=== PATIENT | male | born 2000 | race Caucasian/White ===

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

== ENCOUNTER 2023-05-10 15:27 | Inpatient (IN) | payer MEDICAID, OTHER, SELFPAY ==
[~2023-05-10] VITALS: Ht 180.3 cm; Wt 68.6 kg
[~2023-05-10 15:27] MED LIST: ACET-683 PO; KETO10TAB PO; ONDA4TAB6 PO
[2023-05-10 16:19] LABS: HEMATOCRIT 34.7 % (42.0-52.0); HEMOGLOBIN 11.8 g/dl (13.5-17.5); MEAN CORPUSCULAR HEMOGLOBIN 30.8 pg (27.0-33.0); MEAN CORPUSCULAR VOLUME 90.6 fl (80.0-96.0); PLATELET COUNT, AUTOMATED 174 10^3/uL (150-450); RED BLOOD COUNT 3.83 10^6/uL (4.30-6.10); WHITE BLOOD COUNT 7.5 10^3/uL (4.0-10.0)
[2023-05-10 16:46] LABS: ETHYL ALCOHOL (ETHANOL) < 0.003 % (0.000-0.010)
[2023-05-10 16:47] LABS: SALICYLATE LEVEL < 3.0 MG/DL (<30)
[2023-05-10 16:48] LABS: ACETAMINOPHEN LEVEL < 2.0 UG/ML (10.0-20.0); ALBUMIN 3.3 G/DL (3.2-5.2); ALKALINE PHOSPHATASE 84 U/L (46-116); ALT/SGPT 27 U/L (7.0-40); AST/SGOT 16 U/L (<34); BILIRUBIN,DIRECT 0.2 MG/DL (<0.4); BILIRUBIN,TOTAL 0.4 MG/DL (0.3-1.2); BLOOD UREA NITROGEN 17 MG/DL (9-23); CALCIUM LEVEL 8.5 MG/DL (8.5-10.1); CARBON DIOXIDE LEVEL 29 MMOL/L (20-31); CHLORIDE LEVEL 103 MMOL/L (98-107); CREATININE FOR GFR 0.87 MG/DL (0.70-1.30); GLOMERULAR FILTRATION RATE > 60.0 (>60); GLUCOSE, FASTING 72 MG/DL (60-100); POTASSIUM SERUM 3.9 MMOL/L (3.5-5.1); SODIUM LEVEL 137 MMOL/L (136-145); TOTAL PROTEIN 6.5 G/DL (5.7-8.2)
[2023-05-10 16:50] LABS: THYROID STIMULATING HORMONE 1.111 uIU/ML (0.55-4.78)
[2023-05-10 18:41] LABS: BARBITURATES URINE NEGATIVE (NEGATIVE); BENZODIAZEPINES URINE NEGATIVE (NEGATIVE); COCAINE METABOLITE URINE NEGATIVE (NEGATIVE); METHADONE URINE NEGATIVE (NEGATIVE); OPIATES URINE NEGATIVE (NEGATIVE); PHENCYCLIDINE URINE NEGATIVE (NEGATIVE)
[2023-05-10 18:44] LABS: AMPHETAMINES LEVEL URINE POSITIVE (NEGATIVE); CANNABINOIDS URINE POSITIVE (NEGATIVE)
[2023-05-10] MEDS ORDERED: ACETAMINOPHEN TAB 650MG DOSE (2X325MG) PO PRN (19:00)
[2023-05-10] MEDS ORDERED: MOM 30ML SUSPENSION UDC PO PRN (19:00)
[2023-05-10] MEDS ORDERED: MAALOX 30 ML SUSP *UDC PO PRN (19:00)
[2023-05-10] MEDS ORDERED: diphenhydrAMINE 25MG CAP PO PRN (19:00)
[2023-05-10] MEDS ORDERED: HOME MED LIST COMPLETE! XX SCH (19:15)
[2023-05-10 22:12] VITALS: BP 136/64; TEMP 98.4; O2SAT 100
[2023-05-10] MEDS: traZODone 50 MG TAB PO PRN (23:05)
[2023-05-11] MEDS: IBUPROFEN 400MG TAB PO PRN (06:25)
[2023-05-11 06:29] VITALS: BP 131/70; TEMP 99.3; O2SAT 98
[2023-05-11] MEDS: NICOTINE 21MG/24HR 1 EA TRANSDERMAL TD SCH (08:21)
[2023-05-11] MEDS ORDERED: SERTRALINE HCL 25 MG TABLET PO ONE (13:30)
[2023-05-11 17:58] VITALS: BP 141/76; TEMP 98
[2023-05-11] MEDS: traZODone 50 MG TAB PO PRN (20:43)
[2023-05-12] MEDS: IBUPROFEN 400MG TAB PO PRN (06:19)
[2023-05-12 06:35] VITALS: BP 137/84; TEMP 98.4; O2SAT 100
[2023-05-12] MEDS: NICOTINE 21MG/24HR 1 EA TRANSDERMAL TD SCH (08:14)
[2023-05-12] MEDS: SERTRALINE HCL 50 MG TAB PO SCH (08:14)
[2023-05-12 18:25] VITALS: BP 138/74; TEMP 98.2
[2023-05-12] MEDS: traZODone 50 MG TAB PO PRN (20:14)
[2023-05-13 06:34] VITALS: BP 139/85; TEMP 97.9; O2SAT 96
[2023-05-13] MEDS: SERTRALINE HCL 50 MG TAB PO SCH (08:32)
[2023-05-13] MEDS: NICOTINE 21MG/24HR 1 EA TRANSDERMAL TD SCH (08:33)
[2023-05-13] MEDS ORDERED: SERT50TA29 PO (09:12)
[2023-05-13] MEDS ORDERED: NICO21PAT TD (09:12)
[2023-05-13] MEDS ORDERED: TRAZ-252 PO (09:12)
[2023-05-13 18:54] VITALS: BP 143/83; TEMP 98
[2023-05-13] MEDS: traZODone 50 MG TAB PO PRN (20:12)
[2023-05-14 06:23] VITALS: BP 154/68; TEMP 98.4; O2SAT 100
[2023-05-14] MEDS: NICOTINE 21MG/24HR 1 EA TRANSDERMAL TD SCH (09:00)
[2023-05-14] MEDS: SERTRALINE HCL 50 MG TAB PO SCH (09:31)
== END 2023-05-14 12:02 | disposition home or self-care (01) | DRG 754 ==
LOC: M ED 15:27 → M ED INP 18:57 → M PSY 22:07
PROVIDERS: ADMIT Student in an Organized Health Care Education/Training Program; ATTEND Student in an Organized Health Care Education/Training Program
DX: F32.A Depression, unspecified (principal); R45.851 Suicidal ideations; F15.14 Other stimulant abuse with stimulant-induced mood disorder; F17.200 Nicotine dependence, unspecified, uncomplicated; Z59.01 Sheltered homelessness; J45.909 Unspecified asthma, uncomplicated; F12.10 Cannabis abuse, uncomplicated

== ENCOUNTER → 2023-07-16 | Outpatient (CLI) | payer MEDICAID ==
[~2023-07-16] MED LIST changes: +NICO21PAT TD; +SERT50TA29 PO; +TRAZ-252 PO
== END ==
LOC: M OUTALCOH 09:47
PROVIDERS: ATTEND Psychiatry & Neurology Psychiatry
DX: Z13.39 Encounter for screening examination for other mental health and behavioral disorders (principal)

== ENCOUNTER 2023-09-01 15:48 | Emergency (ER) | payer MEDICAID, OTHER ==
[~2023-09-01] VITALS: Ht 180.3 cm; Wt 77.3 kg
[2023-09-01] MEDS ORDERED: CEPHALEXIN 500 MG CAP PO ONE (19:30)
[2023-09-01] MEDS ORDERED: LIDOCAINE 1% MDV 20ML VIAL SC ONE (19:30)
[2023-09-01] MEDS ORDERED: BOOSTRIX VACCINE (TETANUS/DIPHTH/ACEL. PERTUSSIS) 0.5ML SYR IM ONE (19:30)
[2023-09-01] MEDS ORDERED: CEPH500C PO (20:24)
[2023-09-01 20:42] VITALS: BP 147/76; TEMP 97.5; O2SAT 97
== END 2023-09-01 20:43 | disposition home or self-care (01) ==
LOC: M ED 15:48
DX: S81.812A Laceration without foreign body, left lower leg, initial encounter (principal)